=== PATIENT | female | born 1985 | race Caucasian/White ===

== ENCOUNTER 2019-09-18 17:27 | Emergency (ER) | payer OTHER ==
[2019-09-18 17:49] VITALS: BP 124/86; PULSE 89; TEMP 98.3; BMI 20.9
[2019-09-18] MEDS ORDERED: SODIUM CHLORIDE 0.9% 500 ML INFUS.BAG IV ONE (18:26)
--- NOTE | 2019-09-18 19:02 | PDOC ---
History of Present Illness - General Chief Complaint: Pain Stated Complaint: ELVA LEG PAIN Time Seen by Provider: 09/18/19 17:44 - History of Present Illness Initial Comments: 09/18/19 19:03 34-year-old female with no significant past medical history presents the emergency department with bilateral lower extremity pain since this morning. She reports the pain is migrating, at times is located in focal areas in her anterior thigh on the left followed by her medial thigh on the right, never staying in one position. Patient relates her symptoms to starting tinidazole yesterday for bacterial vaginosis. The medication was started yesterday by her [employer] doctor after evaluation. Patient began to read about her symptoms on [employer] , and became concerned about neuropathy prompting her to call her [employer] doctor who advised her to come to the emergency department for evaluation. Past History - Past Medical History Allergies/Adverse Reactions: Allergies Allergy/AdvReac Type Severity Reaction Status Date / Time No Known Allergies Allergy Verified 09/18/19 17:31 Home Medications: Ambulatory Orders Amoxicillin - [Amoxicillin 500mg Capsule -] 500 mg PO BID 09/18/19 Fluconazole 150 mg PO DAILY 09/18/19 Tinidazole 500 mg PO ASDIR 09/18/19 COPD: No - Psycho Social/Smoking Cessation Hx Smoking History: Never smoked Have you smoked in the past 12 months: No Information on smoking cessation initiated: No Hx Alcohol Use: No Drug/Substance Use Hx: No *Physical Exam - Vital Signs Last Vital Signs Temp Pulse Resp BP Pulse Ox 98.3 F 89 20 124/86 100 09/18/19 17:28 09/18/19 17:28 09/18/19 17:28 09/18/19 17:28 09/18/19 17:28
[2019-09-18 19:19] LABS: BASO % 0.5 % (0-2.0); EOS % 1.1 % (0-4.5); HEMATOCRIT 40.1 % (32.4-45.2); HEMOGLOBIN 13.9 GM/dl (10.7-15.3); MCH 32.3 pg (25.7-33.7); MCHC 34.6 g/dl (32.0-36.0); MEAN CELL VOLUME 93.1 fl (80-96); MEAN PLT VOLUME 8.1 fl (7.5-11.1); MONO % 11.1 % (3.8-10.2); NEUT % 50.3 % (42.8-82.8); PLATELET COUNT 221 K/MM3 (134-434); RBC 4.31 M/mm3 (3.60-5.2); RDW 11.4 % (11.6-15.6); WHITE BLOOD COUNT 4.7 K/mm3 (4.0-10.8)
[2019-09-18 19:28] LABS: ALBUMIN 4.5 g/dl (3.4-5.0); BILIRUBIN,TOTAL 0.6 mg/dl (0.2-1); CALCIUM 9.4 mg/dl (8.5-10); CREATININE 0.7 mg/dl (0.55-1.3); MAGNESIUM 2.2 mg/dL (1.8-2.4); POTASSIUM 3.6 mmol/L (3.5-5.1)
--- NOTE | 2019-09-18 19:46 | PDOC ---
*Physical Exam - Vital Signs Last Vital Signs Temp Pulse Resp BP Pulse Ox 98.3 F 89 20 124/86 100 09/18/19 17:28 09/18/19 17:28 09/18/19 17:28 09/18/19 17:28 09/18/19 17:28 ED Treatment Course - LABORATORY CBC & Chemistry Diagram: 09/18/19 19:00 09/18/19 19:00 - ADDITIONAL ORDERS Additional order review: Laboratory Results 09/18/19 09/18/19 19:00 19:00 Sodium 137 Potassium 3.6 Chloride 105 Carbon Dioxide 27 Anion Gap 5 L BUN 11.0 Creatinine 0.7 Est GFR (CKD-EPI)AfAm 132.87 Est GFR (CKD-EPI)NonAf 114.64 Random Glucose 83 Calcium 9.4 Magnesium 2.2 Total Bilirubin 0.6 AST 18 ALT 11 L Alkaline Phosphatase 48 Creatine Kinase 52 Total Protein 8.0 Albumin 4.5 09/18/19 19:00 RBC 4.31 MCV 93.1 MCHC 34.6 RDW 11.4 L MPV 8.1 Neutrophils % 50.3 Lymphocytes % 37.0 Monocytes % 11.1 H Eosinophils % 1.1 Basophils % 0.5 - Medications Given in the ED: ED Medications Discontinued Medications Generic Name Dose Route Start Last Admin Trade Name Freq PRN Reason Stop Dose Admin Sodium Chloride 1,000 ml 09/18/19 18:26 09/18/19 19:19 Normal Saline - IV 09/18/19 18:27 1,000 ml ONCE ONE Administration ED Progress Note - Progress Note Progress Note: 09/18/19 19:00 Care of this patient was transferred to [place] from Dr. Best at 1900 hrs. Patient is a 34-year-old female who comes in complaining of bilateral leg discomfort and pain. Patient was recently started on did not resolve for bacterial vaginosis. Patient is convinced that it is caused a neuropathy in her legs. Work-up was initiated including CBC and comp and CK to rule out any rhabdo patient's neurovascular exam was intact. 09/18/19 19:44 Reevaluation patient's blood work is normal including a normal CBC normal white count and normal CK. patient discharged home to follow-up with her primary care doctor patient told to stop the Discharge - Discharge Information Problems reviewed: Yes Clinical Impression/Diagnosis: Myalgia Condition: Stable Disposition: HOME - Admission No - Follow up/Referral - Patient Discharge Instructions Additional Instructions: Return to the emergency department immediately with ANY new, persistent or worsening symptoms. Continue any medications as previously prescribed by your physician. You should follow up with your primary doctor as soon as possible regarding today's emergency department visit. . Please make sure your doctor reviews the results of your emergency evaluation. Thank you for coming to the Emergency Department today for your care. It was a pleasure to see you today. Please note that your evaluation is INCOMPLETE until you follow-up with your doctor. You can take Tylenol or Motrin as needed for body aches or muscle aches. Your work-up was negative including normal blood work. Stop taking the tinadazole. Follow-up with your OB - Post Discharge Activity
== END 2019-09-18 20:15 | disposition home or self-care (01) ==
LOC: FER 17:27
PROC: 3E0337Z Introduction of Electrolytic and Water Balance Substance into Peripheral Vein, Percutaneous Approach (ICD-10-PCS; principal; 2019-09-18)
DX: M79.18 Myalgia, other site (principal)
CPT/HCPCS: 36415; 80053; 82550; 83735; 85025; 99283-25